=== PATIENT | female | born 2000 | race Caucasian/White ===

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

== ENCOUNTER 2021-06-14 18:05 | Emergency (ER) | payer OTHER ==
[2021-06-14 18:26] VITALS: BP 107/70; PULSE 108; TEMP 97.8; BMI 17.6
[2021-06-14] MEDS ORDERED: DEXAMETHASONE LIQUID 0.5 MG/5 ML PO ONE (19:00)
[2021-06-14] MEDS ORDERED: DEXAMETHASONE SOD PHOSPHATE 10 MG/1 ML VIAL ONE (19:01)
== END 2021-06-14 19:20 | disposition home or self-care (01) ==
LOC: JER 18:05
DX: R09.81 Nasal congestion (principal); J02.9 Acute pharyngitis, unspecified; Z11.52 Encounter for screening for COVID-19
CPT/HCPCS: 87880; 99283-25; C9803; U0003; U0005

== ENCOUNTER 2021-08-05 22:11 | Emergency (ER) | payer OTHER ==
[2021-08-05 22:18] VITALS: TEMP 98.1; BMI 17.6
[2021-08-05] MEDS ORDERED: IBUPROFEN 600 MG TABLET (FP) PO ONE ×2 (23:32→23:37)
[2021-08-05] MEDS ORDERED: diazePAM 5 MG TABLET PO ONE (23:32)
[2021-08-05] MEDS ORDERED: diazePAM 5 MG TABLET ONE (23:37)
[2021-08-05] MEDS ORDERED: LIDOCAINE 5% TOPICAL PATCH TP ONE (23:42)
[2021-08-05] MEDS ORDERED: KETOROLAC TROMETHAMINE 15 MG/ML VIAL IM ONE (23:48)
[2021-08-05] MEDS ORDERED: LIDOCAINE 5% TOPICAL PATCH ONE (23:52)
[2021-08-05] MEDS ORDERED: KETOROLAC TROMETHAMINE 15 MG/ML VIAL ONE (23:52)
[2021-08-06] MEDS ORDERED: LIDOCAINE HCL 2% (20ML MULTI-DOSE VIAL) ONE (01:12)
[2021-08-06] MEDS ORDERED: LIDOCAINE HCL 2% (50ML VIAL) SQ ONE (01:12)
[2021-08-06 01:21] VITALS: BP 100/62; PULSE 87
[2021-08-06] MEDS ORDERED: IBUPROFEN 100 MG/5 ML UNIT DOSE CUPS PO ONE (01:39)
[2021-08-06] MEDS ORDERED: ACETAMINOPHEN 160 MG/5 ML *Children Solution PO ONE (01:42)
[2021-08-06] MEDS ORDERED: ACETAMINOPHEN 650 MG/20.3 ML ORAL SOLUTION (CUPS) ONE (01:42)
[2021-08-06] MEDS ORDERED: LIDOCAINE PATCH REMOVAL MC ONE (12:00)
== END 2021-08-06 01:47 | disposition home or self-care (01) ==
LOC: JER 22:11
PROC: 3E023GC Introduction of Other Therapeutic Substance into Muscle, Percutaneous Approach (ICD-10-PCS; principal; 2021-08-05)
DX: M54.2 Cervicalgia (principal)
CPT/HCPCS: 96372; 99284-25

== ENCOUNTER 2021-08-06 12:14 | Emergency (ER) | payer OTHER ==
[2021-08-06 13:26] VITALS: BP 100/62; PULSE 113; TEMP 97.9; BMI 19.5
== END 2021-08-06 14:09 | disposition home or self-care (01) ==
LOC: JERFT 12:14
DX: M43.6 Torticollis (principal)
CPT/HCPCS: 99281-25

== ENCOUNTER 2021-09-23 17:59 | Emergency (ER) | payer OTHER ==
[2021-09-23 18:08] VITALS: BP 96/64; TEMP 98.2; BMI 21.4
[2021-09-23] MEDS ORDERED: ONDANSETRON 4 MG/2 ML VIAL IVPUSH ONE (18:09)
[2021-09-23] MEDS ORDERED: FAMOTIDINE 20 MG/50 ML IVPB 20 MG/50 ML MG IVPB ONE ×2 (18:09→18:36)
[2021-09-23] MEDS ORDERED: SODIUM CHLORIDE 0.9% 500 ML INFUS.BAG IV ONE ×2 (18:09→21:19)
[2021-09-23] MEDS ORDERED: ONDANSETRON 4 MG/2 ML VIAL ONE (18:35)
[2021-09-23 19:02] LABS: BASO % 0.2 % (0-2.0); EOS % 0.2 % (0-4.5); HEMATOCRIT 45.2 % (32.4-45.2); HEMOGLOBIN 15.4 GM/dL (10.7-15.3); LYMPH % 3.8 % (8-40); MCH 31.6 pg (25.7-33.7); MCHC 34.1 g/dl (32.0-36.0); MEAN CELL VOLUME 92.7 fl (80-96); MEAN PLT VOLUME 8.1 fl (7.5-11.1); MONO % 4.2 % (3.8-10.2); NEUT % 91.6 % (42.8-82.8); PLATELET COUNT 272 10^3/uL (134-434); RBC 4.88 M/mm3 (3.60-5.2); WHITE BLOOD COUNT 11.2 K/mm3 (4.0-10.0)
[2021-09-23 19:08] VITALS: PULSE 114
[2021-09-23 19:09] LABS: CHLORIDE 107 mmol/L (98-107); SODIUM 142 mmol/L (136-145)
[2021-09-23 19:11] LABS: ALBUMIN 4.2 g/dl (3.4-5.0); ANION GAP 9 MMOL/L (8-16); BLOOD UREA NITROGEN 11.4 mg/dL (7-18); CALCIUM 9.5 mg/dL (8.5-10.1); CO2 26 mmol/L (21-32); GLUCOSE,RANDOM 86 mg/dL (74-106)
[2021-09-23 19:14] LABS: CREATININE 0.6 mg/dL (0.55-1.3); SGOT/AST 17 U/L (15-37); SGPT/ALT 27 U/L (13-61)
[2021-09-23 19:16] LABS: BILIRUBIN,TOTAL 0.7 mg/dL (0.2-1); TOT PROT 7.4 g/dl (6.4-8.2)
[2021-09-23 19:17] LABS: ALK PHOS 83 U/L (45-117)
[2021-09-23 19:18] LABS: PH,URINE 6.5 (5.0-8.0); URINE APPEARANCE CLEAR; URINE BILIRUBIN NEGATIVE (NEGATIVE); URINE COLOR YELLOW; URINE GLUCOSE (UA) NEGATIVE (NEGATIVE); URINE KETONE 4+ (NEGATIVE); URINE LEUK ESTERASE NEGATIVE (NEGATIVE); URINE NITRITE NEGATIVE (NEGATIVE); URINE PROTEIN TRACE (NEGATIVE)
[2021-09-23 19:38] LABS: ANISOCYTOSIS 0; HELMET CELLS 0; HOWELL-JOLLY BODIES 0; MACROCYTOSIS 0; OVALOCYTE 0; PLATELET ESTIMATE NORMAL; ROULEAU 0; SICKELED CELLS 0; TARGET CELLS 0; TEAR DROP CELLS 0; TOXIC GRANULATION 0
[2021-09-23] MEDS ORDERED: DEXTROSE 5%-NORMAL SALINE 1,000 ML IV ONE (19:56)
[2021-09-23] MEDS ORDERED: METOCLOPRAMIDE HCL INJECTION 10 MG/2 ML VIAL ONE (21:30)
[2021-09-23] MEDS ORDERED: METOCLOPRAMIDE HCL INJECTION 10 MG/2 ML VIAL IVPUSH ONE (21:30)
[2021-09-24] MEDS ORDERED: AMOX TR/POT CLAV 875MG/125MG TABLETS (FP) PO ONE (00:13)
== END 2021-09-24 01:00 | disposition home or self-care (01) ==
LOC: JER 17:59
PROC: 3E033GC Introduction of Other Therapeutic Substance into Peripheral Vein, Percutaneous Approach (ICD-10-PCS; principal; 2021-09-23)
DX: R10.31 Right lower quadrant pain (principal); R11.2 Nausea with vomiting, unspecified; R19.7 Diarrhea, unspecified
CPT/HCPCS: 36415; 74177-TC; 80053; 81003; 84702; 84703; 85025; 87086; 96361; 96365; 96375; 99285-25; C9803-CS; Q9967; U0003; U0005

== ENCOUNTER 2021-10-24 06:54 | Observation (INO) | payer OTHER ==
[2021-10-24 07:07] VITALS: BMI 17.6
[2021-10-24] MEDS ORDERED: FAMOTIDINE 20 MG/50 ML IVPB 20 MG/50 ML MG IVPB ONE ×2 (07:45→07:50)
[2021-10-24] MEDS ORDERED: ONDANSETRON 4 MG/2 ML VIAL IVPUSH ONE (07:45)
[2021-10-24] MEDS ORDERED: SODIUM CHLORIDE 1,000 ML IV STA ×2 (07:45→09:18)
[2021-10-24] MEDS ORDERED: MAG HYDROX/AL HYDROX/SIMETH 30 ML UNIT-DOSE CUP PO ONE (07:45)
[2021-10-24] MEDS ORDERED: MAG HYDROX/AL HYDROX/SIMETH 30 ML UNIT-DOSE CUP ONE (07:49)
[2021-10-24] MEDS ORDERED: ONDANSETRON 4 MG/2 ML VIAL ONE (07:50)
[2021-10-24 08:27] LABS: EPI CELLS 22 /uL (0-25.1); HYALINE CASTS 3 /uL (0-3.1); URINE APPEARANCE CLEAR; URINE BACTERIA 450 /uL (0-1359); URINE BILIRUBIN NEGATIVE (NEGATIVE); URINE COLOR YELLOW; URINE GLUCOSE (UA) NEGATIVE (NEGATIVE); URINE KETONE 4+ (NEGATIVE); URINE LEUK ESTERASE 1+ (NEGATIVE); URINE NITRITE NEGATIVE (NEGATIVE); URINE PROTEIN TRACE (NEGATIVE); URINE RBC 9 /uL (0-23.9); URINE WBC 66 /uL (0-25.8)
[2021-10-24 08:28] LABS: HCG,QUALITATIVE URINE Negative
[2021-10-24 08:58] LABS: CALCIUM 10.1 mg/dL (8.5-10.1)
[2021-10-24 08:59] LABS: ALBUMIN 4.2 g/dl (3.4-5.0); BLOOD UREA NITROGEN 16.2 mg/dL (7-18); MAGNESIUM 2.4 mg/dL (1.8-2.4)
[2021-10-24 09:02] LABS: CREATININE 0.5 mg/dL (0.55-1.3)
[2021-10-24 09:03] LABS: BILIRUBIN,TOTAL 0.8 mg/dL (0.2-1); TOT PROT 7.6 g/dl (6.4-8.2)
[2021-10-24 09:14] LABS: BASO % 0.5 % (0-2.0); EOS % 1.5 % (0-4.5); HEMATOCRIT 48.3 % (32.4-45.2); HEMOGLOBIN 15.8 GM/dL (10.7-15.3); LYMPH % 5.7 % (8-40); MCH 30.9 pg (25.7-33.7); MCHC 32.7 g/dl (32.0-36.0); MEAN CELL VOLUME 94.5 fl (80-96); MEAN PLT VOLUME 8.4 fl (7.5-11.1); MONO % 6.1 % (3.8-10.2); NEUT % 86.2 % (42.8-82.8); PLATELET COUNT 300 10^3/uL (134-434); RBC 5.11 M/mm3 (3.60-5.2); WHITE BLOOD COUNT 10.3 K/mm3 (4.0-10.0)
[2021-10-24] MEDS ORDERED: SUCRALFATE 1 GM/10 ML UNIT DOSE CUPS PO ONE (10:27)
[2021-10-24] MEDS ORDERED: SUCRALFATE 1 GM TABLET (FP) ONE (10:37)
[2021-10-24] MEDS ORDERED: DEXTROSE 5%-0.45% SALINE 1,000 ML IV SCH ×2 (10:45→14:15)
[2021-10-24] MEDS ORDERED: ACETAMINOPHEN 1000 MG/100 ML BAG IVPB ONE (12:00)
[2021-10-24] MEDS ORDERED: ACETAMINOPHEN INJECTION 100 ML IVPB ONE (12:49)
[2021-10-24 14:20] VITALS: TEMP 98.5
[2021-10-24] MEDS ORDERED: ONDANSETRON 4 MG/2 ML VIAL IVPUSH PRN (15:57)
[2021-10-24] MEDS ORDERED: LACTATED RINGERS SOLUTION 1,000 ML IV SCH (16:00)
[2021-10-24 18:50] VITALS: BP 101/69; PULSE 99
== END 2021-10-24 19:04 | disposition home or self-care (01) ==
LOC: JER 06:54 → JERBED 14:27
PROVIDERS: ADMIT Internal Medicine; ATTEND Internal Medicine
PROC: 3E033GC Introduction of Other Therapeutic Substance into Peripheral Vein, Percutaneous Approach (ICD-10-PCS; principal; 2021-10-24)
PROC: 3E0337Z Introduction of Electrolytic and Water Balance Substance into Peripheral Vein, Percutaneous Approach (ICD-10-PCS; 2021-10-24)
DX: A08.4 Viral intestinal infection, unspecified (principal); Z29.9 Encounter for prophylactic measures, unspecified; R10.13 Epigastric pain
CPT/HCPCS: 36415; 80053; 81003; 83690; 83735; 84703; 85025; 87086; 93005; 93010; 96361; 96365; 96366; 96367; 96375; 99285-25; C9803; G0378; J0131; U0003; U0005

== ENCOUNTER 2022-02-20 18:33 | Emergency (ER) | payer OTHER ==
[2022-02-20 18:40] VITALS: BP 96/65; PULSE 100; TEMP 98.2; BMI 17.7
[2022-02-20] MEDS ORDERED: FAMOTIDINE 20 MG/50 ML IVPB 20 MG/50 ML MG IVPB ONE ×2 (20:49→21:35)
[2022-02-20] MEDS ORDERED: SODIUM CHLORIDE 0.9% 500 ML INFUS.BAG IV ONE (20:49)
[2022-02-20] MEDS ORDERED: ONDANSETRON 4 MG/2 ML VIAL IVPUSH ONE (20:49)
[2022-02-20] MEDS ORDERED: ONDANSETRON 4 MG/2 ML VIAL ONE (21:35)
[2022-02-20 21:50] LABS: BASO % 0.1 % (0-2.0); EOS % 2.4 % (0-4.5); HEMATOCRIT 45.9 % (32.4-45.2); HEMOGLOBIN 15.3 GM/dL (10.7-15.3); LYMPH % 19.7 % (8-40); MCH 31.4 pg (25.7-33.7); MCHC 33.3 g/dl (32.0-36.0); MEAN CELL VOLUME 94.4 fl (80-96); MEAN PLT VOLUME 7.6 fl (7.5-11.1); MONO % 6.9 % (3.8-10.2); NEUT % 70.9 % (42.8-82.8); PLATELET COUNT 323 10^3/uL (134-434); RBC 4.86 M/mm3 (3.60-5.2); RDW 13.1 % (11.6-15.6); WHITE BLOOD COUNT 11.1 K/mm3 (4.0-10.0)
[2022-02-20 22:03] LABS: CALCIUM 10.1 mg/dL (8.5-10.1)
[2022-02-20 22:04] LABS: ALBUMIN 4.4 g/dl (3.4-5.0); BLOOD UREA NITROGEN 9.8 mg/dL (7-18)
[2022-02-20 22:07] LABS: CREATININE 0.5 mg/dL (0.55-1.3)
[2022-02-20 22:09] LABS: TOT PROT 7.4 g/dl (6.4-8.2)
[2022-02-20 22:16] LABS: BILIRUBIN,TOTAL 0.9 mg/dL (0.2-1)
[2022-02-20 23:27] LABS: URINE APPEARANCE CLOUDY; URINE BILIRUBIN NEGATIVE (NEGATIVE); URINE COLOR YELLOW; URINE GLUCOSE (UA) NEGATIVE (NEGATIVE); URINE KETONE TRACE (NEGATIVE); URINE LEUK ESTERASE 2+ (NEGATIVE); URINE NITRITE NEGATIVE (NEGATIVE); URINE PROTEIN TRACE (NEGATIVE)
[2022-02-20] MEDS ORDERED: KETOROLAC TROMETHAMINE 30 MG/1 ML VIAL IVPUSH ONE (23:45)
[2022-02-20] MEDS ORDERED: KETOROLAC TROMETHAMINE 30 MG/1 ML VIAL ONE (23:53)
[2022-02-20 23:59] LABS: EPI CELLS 20.1 /uL (0-25.1); HYALINE CASTS 14.35 /uL (0-3.1); URINE BACTERIA 1129 /uL (0-1359); URINE RBC 9.1 /uL (0-23.9); URINE WBC 271.7 /uL (0-25.8)
== END 2022-02-21 00:38 | disposition home or self-care (01) ==
LOC: JER 18:33
PROC: 3E033GC Introduction of Other Therapeutic Substance into Peripheral Vein, Percutaneous Approach (ICD-10-PCS; principal; 2022-02-20)
PROC: 3E0333Z Introduction of Anti-inflammatory into Peripheral Vein, Percutaneous Approach (ICD-10-PCS; 2022-02-20)
PROC: 3E033GC Introduction of Other Therapeutic Substance into Peripheral Vein, Percutaneous Approach (ICD-10-PCS; 2022-02-20)
DX: R11.2 Nausea with vomiting, unspecified (principal); R19.7 Diarrhea, unspecified
CPT/HCPCS: 36415; 80053; 81003; 84703; 85025; 87086; 99284-25

== ENCOUNTER 2022-03-03 17:37 | Emergency (ER) | payer OTHER ==
[2022-03-03 17:42] VITALS: BP 99/65; PULSE 121; TEMP 98.2; BMI 17.7
[2022-03-03] MEDS ORDERED: FAMOTIDINE 20 MG/50 ML IVPB 20 MG/50 ML MG IVPB ONE ×2 (21:11→21:52)
[2022-03-03] MEDS ORDERED: SODIUM CHLORIDE 0.9% 500 ML INFUS.BAG IV ONE (21:11)
[2022-03-03] MEDS ORDERED: ONDANSETRON 4 MG/2 ML VIAL IVPB ONE (21:11)
[2022-03-03] MEDS ORDERED: ONDANSETRON 4 MG/2 ML VIAL ONE (21:52)
[2022-03-03 22:34] LABS: BASO % 0.3 % (0-2.0); EOS % 9.1 % (0-4.5); HEMATOCRIT 42.6 % (32.4-45.2); HEMOGLOBIN 14.7 GM/dL (10.7-15.3); LYMPH % 34.6 % (8-40); MCH 32.2 pg (25.7-33.7); MCHC 34.5 g/dl (32.0-36.0); MEAN CELL VOLUME 93.2 fl (80-96); MEAN PLT VOLUME 7.7 fl (7.5-11.1); MONO % 8.2 % (3.8-10.2); NEUT % 47.8 % (42.8-82.8); PLATELET COUNT 273 10^3/uL (134-434); RBC 4.57 M/mm3 (3.60-5.2); RDW 13.1 % (11.6-15.6); WHITE BLOOD COUNT 7.7 K/mm3 (4.0-10.0)
[2022-03-03 22:38] LABS: EPI CELLS >36 /uL (0-25.1); HYALINE CASTS 70 /uL (0-3.1); URINE APPEARANCE CLOUDY; URINE BACTERIA 2441 /uL (0-1359); URINE BILIRUBIN NEGATIVE (NEGATIVE); URINE COLOR YELLOW; URINE GLUCOSE (UA) NEGATIVE (NEGATIVE); URINE KETONE TRACE (NEGATIVE); URINE LEUK ESTERASE 2+ (NEGATIVE); URINE NITRITE NEGATIVE (NEGATIVE); URINE PROTEIN 1+ (NEGATIVE); URINE WBC 578 /uL (0-25.8)
[2022-03-03 22:39] LABS: HCG,QUALITATIVE URINE Negative
[2022-03-03 22:52] LABS: CALCIUM 9.4 mg/dL (8.5-10.1)
[2022-03-03 22:56] LABS: CREATININE 0.7 mg/dL (0.55-1.3)
[2022-03-03 22:58] LABS: BILIRUBIN,TOTAL 0.5 mg/dL (0.2-1)
[2022-03-03] MEDS ORDERED: CEFTRIAXONE 1,000 MG in DEXTROSE 5%-WATER - 50 ML IVPB ONE (23:57)
[2022-03-04] MEDS ORDERED: CEFTRIAXONE 1 GM/50 ML BAG ONE
== END 2022-03-04 03:49 | disposition home or self-care (01) ==
LOC: JER 17:37
DX: N39.0 Urinary tract infection, site not specified (principal); R10.9 Unspecified abdominal pain
CPT/HCPCS: 0241U-QW; 36415; 74177-TC; 80053; 81003; 84703; 85025; 99285-25; Q9967

== ENCOUNTER 2022-04-01 11:13 | Emergency (ER) | payer OTHER ==
[2022-04-01 11:53] VITALS: BP 98/66; PULSE 122; TEMP 97.8; BMI 17.7
[2022-04-01 13:51] LABS: THROAT:GRP A STREP NOT DETECTED (NOTDETECTED)
== END 2022-04-01 13:43 | disposition home or self-care (01) ==
LOC: JER 11:13
DX: K52.9 Noninfective gastroenteritis and colitis, unspecified (principal); R19.7 Diarrhea, unspecified; R11.2 Nausea with vomiting, unspecified
CPT/HCPCS: 0241U-QW; 87651; 99283-25

== ENCOUNTER 2022-08-19 07:42 | Emergency (ER) | payer OTHER ==
[2022-08-19 07:56] VITALS: BP 97/65; RESP 20; TEMP 98.3; BMI 17.6
[2022-08-19] MEDS ORDERED: ACETAMINOPHEN 325 MG TABLET (FP) PO ONE (08:14)
[2022-08-19 10:15] VITALS: PULSE 72
== END 2022-08-19 11:23 | disposition home or self-care (01) ==
LOC: JER 07:42 → JERFT 07:42
DX: B34.9 Viral infection, unspecified (principal)
CPT/HCPCS: 0241U-QW; 99283-25

== ENCOUNTER 2022-10-31 12:28 | Emergency (ER) | payer OTHER ==
[2022-10-31 12:40] VITALS: BP 107/65; PULSE 108; RESP 20; TEMP 98.4; BMI 17.9
[2022-10-31] MEDS ORDERED: IBUPROFEN 600 MG TABLET (FP) PO ONE ×2 (13:07→13:09)
[2022-10-31 15:19] LABS: THROAT:GRP A STREP DETECTED (NOTDETECTED)
== END 2022-10-31 13:23 | disposition home or self-care (01) ==
LOC: JERFT 12:28
DX: J03.00 Acute streptococcal tonsillitis, unspecified (principal)
CPT/HCPCS: 0241U-QW; 87651; 99283-25

== ENCOUNTER 2023-01-04 17:35 | Emergency (ER) | payer OTHER ==
[2023-01-04 17:42] VITALS: BP 114/73; PULSE 104; RESP 18; TEMP 98.1; BMI 17.6
[2023-01-04 19:46] LABS: URINE APPEARANCE CLEAR; URINE BILIRUBIN NEGATIVE (NEGATIVE); URINE COLOR YELLOW; URINE GLUCOSE (UA) NEGATIVE (NEGATIVE); URINE KETONE NEGATIVE (NEGATIVE); URINE LEUK ESTERASE NEGATIVE (NEGATIVE); URINE NITRITE NEGATIVE (NEGATIVE); URINE PROTEIN NEGATIVE (NEGATIVE); URINE UROBILINOGEN 0.2 mg/dL (0.2-1.0)
[2023-01-04 19:54] LABS: BASO % 0.4 % (0-2.0); EOS % 1.5 % (0-4.5); HEMATOCRIT 40.4 % (32.4-45.2); HEMOGLOBIN 13.9 GM/dL (10.7-15.3); LYMPH % 28.3 % (8-40); MCH 32.3 pg (25.7-33.7); MCHC 34.5 g/dl (32.0-36.0); MEAN CELL VOLUME 93.8 fl (80-96); MEAN PLT VOLUME 7.4 fl (7.5-11.1); NEUT % 60.8 % (42.8-82.8); PLATELET COUNT 353 10^3/uL (134-434); RBC 4.31 M/mm3 (3.60-5.2); RDW 13.3 % (11.6-15.6); WHITE BLOOD COUNT 8.5 K/mm3 (4.0-10.0)
[2023-01-04 20:16] LABS: BLOOD UREA NITROGEN 13.8 mg/dL (7-18)
[2023-01-04 20:19] LABS: CREATININE 0.5 mg/dL (0.55-1.3)
[2023-01-04 20:21] LABS: BILIRUBIN,TOTAL 0.8 mg/dL (0.2-1); TOT PROT 7.3 g/dl (6.4-8.2)
== END 2023-01-04 21:28 | disposition home or self-care (01) ==
LOC: JER 17:35
DX: O34.81 Maternal care for other abnormalities of pelvic organs, first trimester (principal); N83.202 Unspecified ovarian cyst, left side; O26.891 Other specified pregnancy related conditions, first trimester; R10.30 Lower abdominal pain, unspecified; Z3A.01 Less than 8 weeks gestation of pregnancy
CPT/HCPCS: 36415; 76817-TC; 80053; 81003; 84702; 84703; 85025; 87086; 99284-25

== ENCOUNTER 2023-01-06 18:19 | Emergency (ER) | payer OTHER ==
[2023-01-06 18:23] VITALS: BP 107/68; PULSE 100; RESP 17; TEMP 98.7; BMI 17.6
== END 2023-01-06 20:54 | disposition home or self-care (01) ==
LOC: JERFT 18:19
DX: O02.81 Inappropriate change in quantitative human chorionic gonadotropin (hCG) in early pregnancy (principal); Z3A.01 Less than 8 weeks gestation of pregnancy
CPT/HCPCS: 36415; 84702; 99283-25

== ENCOUNTER 2024-01-11 09:51 | Emergency (ER) | payer OTHER ==
[2024-01-11] MEDS ORDERED: FAMOTIDINE 20 MG/50 ML IVPB 20 MG/50 ML MG IVPB ONE (10:05)
[2024-01-11 10:09] VITALS: BP 104/70; PULSE 83; RESP 20; TEMP 97.7; BMI 17.7
[2024-01-11] MEDS ORDERED: ONDANSETRON 4 MG/2 ML VIAL ONE (10:14)
[2024-01-11] MEDS: SODIUM CHLORIDE 1,000 ML IV STA (10:15)
[2024-01-11] MEDS: ONDANSETRON 4 MG/2 ML VIAL IVPUSH ONE (10:16)
[2024-01-11] MEDS: FAMOTIDINE 20 MG/50 ML IVPB 20 MG/50 ML MG IVPB ONE (10:16)
[2024-01-11 10:26] LABS: HCG,QUALITATIVE URINE Negative
[2024-01-11 10:39] LABS: BILIRUBIN,TOTAL 1.1 mg/dl (0.2-1); CALCIUM 10.3 mg/dl (8.5-10.1); CREATININE 0.6 mg/dl (0.6-1.3); POTASSIUM 3.7 mmol/L (3.5-5.1); TOT PROT 7.6 g/dl (6.4-8.2)
[2024-01-11 10:44] LABS: EPITHELIAL CELLS 0-5 /hpf
[2024-01-11 10:45] LABS: URINE MUCUS MODERATE
[2024-01-11 10:52] LABS: HEMATOCRIT 49.6 % (32.4-45.2); HEMOGLOBIN 16.5 G/dL (10.7-15.3); MCH 31.6 pg (25.7-33.7); MCHC 33.2 g/dl (32.0-36.0); MEAN CELL VOLUME 95.3 fl (80-96); MEAN PLT VOLUME 8.7 fl (7.5-11.1); PLATELET COUNT 337.6 10^3/uL (134-434); RDW 13.2 % (11.6-15.6); WHITE BLOOD COUNT 9.6 10^3/uL (4.0-10.8)
== END 2024-01-11 11:10 | disposition home or self-care (01) ==
LOC: FER 09:51
PROC: 3E033GC Introduction of Other Therapeutic Substance into Peripheral Vein, Percutaneous Approach (ICD-10-PCS; principal; 2024-01-11)
PROC: 3E030GC Introduction of Other Therapeutic Substance into Peripheral Vein, Open Approach (ICD-10-PCS; 2024-01-11)
DX: K27.9 Peptic ulcer, site unspecified, unspecified as acute or chronic, without hemorrhage or perforation (principal); R10.13 Epigastric pain; R19.7 Diarrhea, unspecified; R11.2 Nausea with vomiting, unspecified
CPT/HCPCS: 36415; 80053; 81003; 81015; 83690; 84703; 85027; 99284-25

== ENCOUNTER 2024-03-11 13:41 | Emergency (ER) | payer OTHER ==
[2024-03-11 13:49] VITALS: BP 101/69; PULSE 116; RESP 18; TEMP 98.3; BMI 17.6
[2024-03-11] MEDS ORDERED: ONDANSETRON 4 MG/2 ML VIAL ONE (14:28)
[2024-03-11] MEDS ORDERED: KETOROLAC TROMETHAMINE 30 MG/1 ML VIAL ONE (14:29)
[2024-03-11] MEDS: KETOROLAC TROMETHAMINE 30 MG/1 ML VIAL IVPUSH ONE (14:31)
[2024-03-11] MEDS: SODIUM CHLORIDE 0.9% 500 ML INFUS.BAG IV ONE (14:31)
[2024-03-11 14:32] LABS: BASO % 0.8 % (0-2.0); EOS % 1.6 % (0-4.5); HEMATOCRIT 40.6 % (32.4-45.2); HEMOGLOBIN 14.1 GM/dL (10.7-15.3); LYMPH % 24.7 % (8-40); MCH 32.3 pg (25.7-33.7); MCHC 34.8 g/dl (32.0-36.0); MEAN CELL VOLUME 92.7 fl (80-96); MEAN PLT VOLUME 8.1 fl (7.5-11.1); MONO % 5.8 % (3.8-10.2); NEUT % 67.1 % (42.8-82.8); PLATELET COUNT 377 10^3/uL (134-434); RBC 4.38 M/mm3 (3.60-5.2); RDW 13.6 % (11.6-15.6); WHITE BLOOD COUNT 7.8 K/mm3 (4.0-10.0)
[2024-03-11] MEDS: ONDANSETRON 4 MG/2 ML VIAL IVPUSH ONE (14:32)
[2024-03-11 14:33] LABS: PH,URINE 5.5 (5.0-8.0); URINE APPEARANCE CLOUDY; URINE BILIRUBIN NEGATIVE (NEGATIVE); URINE COLOR YELLOW; URINE GLUCOSE (UA) NEGATIVE (NEGATIVE); URINE KETONE NEGATIVE (NEGATIVE); URINE LEUK ESTERASE 1+ (NEGATIVE); URINE NITRITE NEGATIVE (NEGATIVE); URINE PROTEIN TRACE (NEGATIVE)
[2024-03-11 14:44] LABS: EPI CELLS 49.2 /uL (0-25.1); HYALINE CASTS 0.58 /uL (0-3.1); URINE BACTERIA 914.7 /uL (0-1359)
[2024-03-11 14:51] LABS: POTASSIUM 3.9 mmol/L (3.5-5.1)
[2024-03-11 14:56] LABS: CALCIUM 9.7 mg/dL (8.5-10.1)
[2024-03-11 14:57] LABS: ALBUMIN 4.1 g/dl (3.4-5.0); BLOOD UREA NITROGEN 9.6 mg/dL (7-18)
[2024-03-11 14:58] LABS: CREATININE 0.6 mg/dL (0.55-1.3)
[2024-03-11 15:00] LABS: BILIRUBIN,TOTAL 0.8 mg/dL (0.2-1); TOT PROT 7.1 g/dl (6.4-8.2)
[2024-03-11] MEDS ORDERED: ACETAMINOPHEN INJECTION 100 ML IVPB ONE (15:23)
[2024-03-11] MEDS: ACETAMINOPHEN 1000 MG/100 ML BAG IVPB ONE (15:25)
[2024-03-11] MEDS ORDERED: MORPHINE SULFATE 2 MG/ML SYRINGE ONE (17:28)
[2024-03-11] MEDS ORDERED: TAMSULOSIN HCL 0.4 MG CAP ONE (17:29)
[2024-03-11] MEDS: TAMSULOSIN HCL 0.4 MG CAP PO ONE (17:37)
[2024-03-11] MEDS: morphine CARPU-JECT 2 MG/1 ML DISP.SYRIN IVPUSH ONE (17:37)
== END 2024-03-11 17:48 | disposition home or self-care (01) ==
LOC: JER 13:41
PROC: 3E033NZ Introduction of Analgesics, Hypnotics, Sedatives into Peripheral Vein, Percutaneous Approach (ICD-10-PCS; principal; 2024-03-11)
PROC: 3E0333Z Introduction of Anti-inflammatory into Peripheral Vein, Percutaneous Approach (ICD-10-PCS; 2024-03-11)
PROC: 3E033GC Introduction of Other Therapeutic Substance into Peripheral Vein, Percutaneous Approach (ICD-10-PCS; 2024-03-11)
PROC: 3E033NZ Introduction of Analgesics, Hypnotics, Sedatives into Peripheral Vein, Percutaneous Approach (ICD-10-PCS; 2024-03-11)
DX: N13.2 Hydronephrosis with renal and ureteral calculous obstruction (principal); N30.01 Acute cystitis with hematuria; R10.30 Lower abdominal pain, unspecified; R30.9 Painful micturition, unspecified
CPT/HCPCS: 36415; 74176-TC; 80053; 81003; 83690; 84703; 85025; 87086; 99284-25; J0131